=== PATIENT | male | born 1965 | race Caucasian/White ===

== ENCOUNTER 2024-08-13 13:49 | Inpatient (IN) | payer OTHER ==
[2024-08-13 14:31] VITALS: BMI 37.7
[2024-08-13] MEDS ORDERED: BISMUTH SUBSALICYLATE 262 MG/15 ML BTL PO PRN (14:59)
[2024-08-13] MEDS ORDERED: IBUPROFEN 400 MG TABLET (FP) PO PRN (14:59)
[2024-08-13] MEDS ORDERED: DICYCLOMINE HCL 10 MG CAPSULE PO PRN (14:59)
[2024-08-13] MEDS ORDERED: MAG HYDROX/AL HYDROX/SIMETH 30 ML UNIT-DOSE CUP PO PRN (14:59)
[2024-08-13] MEDS ORDERED: LOPERAMIDE HCL 2 MG CAPSULE PO PRN (14:59)
[2024-08-13] MEDS ORDERED: BENZOCAINE/MENTHOL (CHLORASEPTIC ) LOZENGE MM PRN (14:59)
[2024-08-13] MEDS ORDERED: MAGNESIUM HYDROX 2400MG/30ML ORAL SUSPENSION 30 ML CUP PO PRN (14:59)
[2024-08-13] MEDS ORDERED: guaiFENesin 600 MG TABLET.ER (FP) PO PRN (14:59)
[2024-08-13] MEDS ORDERED: NICOTINE POLACRILEX 2 MG LOZENGE BC PRN (14:59)
[2024-08-13] MEDS ORDERED: BENZONATATE 200 MG CAPSULE PO PRN (14:59)
[2024-08-13] MEDS ORDERED: POLYETHYLENE GLYCOL (HEALTHYLAX) 3350 17 GM PACKET PO PRN (14:59)
[2024-08-13] MEDS ORDERED: NALOXONE (NARCAN) HCL 4 MG/0.1 ML SPRAY NS PRN (14:59)
[2024-08-13] MEDS ORDERED: ONDANSETRON *ODT* 4 MG TABLET ONE (15:36)
[2024-08-13] MEDS: ONDANSETRON *ODT* 4 MG TABLET SL PRN (15:43)
[2024-08-13] MEDS ORDERED: chlordiazePOXIDE HCL 25 MG CAPSULE ONE (15:45)
[2024-08-13] MEDS ORDERED: levETIRAcetam 500 MG TABLET (FP) PO ONE (15:46)
[2024-08-13] MEDS: chlordiazePOXIDE HCL 25 MG CAPSULE PO ONE (15:46)
[2024-08-13] MEDS: levETIRAcetam 500 MG TABLET (FP) PO ONE (15:47)
[2024-08-13] MEDS: chlordiazePOXIDE HCL 25 MG CAPSULE PO SCH (17:07)
[2024-08-13] MEDS: ACETAMINOPHEN 325 MG TABLET (FP) PO PRN (17:08)
[2024-08-13] MEDS: METHOCARBAMOL 500 MG TABLET PO PRN (22:04)
[2024-08-13] MEDS: cloNIDine HCL 0.1 MG TABLET PO ONE (22:04)
[2024-08-13] MEDS: MELATONIN 5 MG TABLETS PO SCH (22:04)
[2024-08-13] MEDS: levETIRAcetam 500 MG TABLET (FP) PO SCH (22:05)
[2024-08-13] MEDS: THIAMINE 100 MG TABLET PO SCH (22:05)
[2024-08-14] MEDS: LOSARTAN POTASSIUM 50 MG TABLET PO SCH (09:26)
[2024-08-14] MEDS: amLODIPine BESYLATE 10 MG TABLET (FP) PO SCH (09:26)
[2024-08-14] MEDS: PRENATAL VITAMINS W/ FOLIC ACID TABLET (FP) PO SCH (09:26)
[2024-08-14] MEDS: BUPRENORPHINE/NALOXONE 12 MG-3 MG SL FILM PACKET SL SCH (09:27)
[2024-08-14] MEDS: IBUPROFEN 600 MG TABLET (FP) PO PRN (09:28)
[2024-08-14 11:16] LABS: HEMATOCRIT 46.3 % (40.1-51.0); HEMOGLOBIN 15.4 g/dL (13.7-17.5); MCHC 33.3 g/dl (32.3-36.5); MEAN CELL VOLUME 90.3 fl (79.0-92.2); MEAN PLT VOLUME 10.2 fl (9.4-12.4); PLATELET COUNT 230 x10^3/uL (163-337); RDW 13.9 % (12.2-16.1)
[2024-08-14 11:25] LABS: POTASSIUM 3.5 mmol/L (3.5-5.1)
[2024-08-14 11:40] LABS: BLOOD UREA NITROGEN 9.9 mg/dL (7-18)
[2024-08-14 11:44] LABS: ALBUMIN 3.8 g/dl (3.4-5.0); CREATININE 0.9 mg/dL (0.55-1.3)
[2024-08-14 11:45] LABS: BILIRUBIN,TOTAL 0.2 mg/dL (0.2-1)
[2024-08-14 11:46] LABS: TOT PROT 7.1 g/dl (6.4-8.2)
[2024-08-14] MEDS: chlordiazePOXIDE HCL 25 MG CAPSULE PO PRN (12:16)
[2024-08-14] MEDS: NICOTINE POLACRILEX 2 MG GUM BUC PRN (16:22)
[2024-08-14] MEDS: cloNIDine HCL 0.1 MG TABLET PO ONE (19:10)
[2024-08-14] MEDS: hydrOXYzine PAMOATE 25 MG CAPSULE (FP) PO PRN (21:04)
[2024-08-14] MEDS: PREGABALIN 50 MG CAPSULE PO SCH (22:07)
[2024-08-14] MEDS: SUVOREXANT 10 MG TABLET PO PRN (22:09)
[2024-08-14] MEDS: hydrALAZINE HCL 25 MG TABLET (FP) PO ONE (23:45)
[2024-08-15] MEDS: chlordiazePOXIDE HCL 25 MG CAPSULE PO SCH (05:38)
[2024-08-15] MEDS: ALBUTEROL SO4 HFA INHALER IH PRN (06:03)
[2024-08-15] MEDS: cloNIDine HCL 0.1 MG TABLET PO PRN (09:23)
[2024-08-15] MEDS: predniSONE 20 MG TABLET (UD) PO SCH (13:30)
[2024-08-15] MEDS: NIFEdipine E.R. 30 MG TABLET PO ONE (13:33)
[2024-08-15] MEDS: SUVOREXANT 15 MG TABLET PO PRN (22:36)
[2024-08-16] MEDS ORDERED: chlordiazePOXIDE HCL 10 MG CAPSULE PO PRN
[2024-08-16] MEDS: chlordiazePOXIDE HCL 10 MG CAPSULE PO SCH (05:47)
[2024-08-16 09:18] VITALS: RESP 18
[2024-08-16] MEDS: NIFEdipine E.R 60 MG TABLET PO SCH (10:19)
[2024-08-17] MEDS: chlordiazePOXIDE HCL 10 MG CAPSULE PO SCH (06:00)
[2024-08-17 09:20] VITALS: BP 149/89; PULSE 71; TEMP 96.9
[2024-08-18] MEDS ORDERED: chlordiazePOXIDE HCL 10 MG CAPSULE PO ONE (05:00)
== END 2024-08-17 12:25 | disposition home or self-care (01) | DRG 897 ==
LOC: YASAS 13:49 → Y6N 16:04
PROVIDERS: ADMIT Allergy & Immunology; ATTEND Allergy & Immunology
PROC: HZ2ZZZZ Detoxification Services for Substance Abuse Treatment (ICD-10-PCS; principal; 2024-08-13)
DX: F10.230 Alcohol dependence with withdrawal, uncomplicated (principal); F14.20 Cocaine dependence, uncomplicated; F17.210 Nicotine dependence, cigarettes, uncomplicated; F10.282 Alcohol dependence with alcohol-induced sleep disorder; F10.280 Alcohol dependence with alcohol-induced anxiety disorder; F41.9 Anxiety disorder, unspecified; F41.0 Panic disorder [episodic paroxysmal anxiety]; E78.5 Hyperlipidemia, unspecified; I10 Essential (primary) hypertension; M54.50 Low back pain, unspecified; G89.29 Other chronic pain; Z62.810 Personal history of physical and sexual abuse in childhood
CPT/HCPCS: 36415; 80053; 80305; 80307; 85027; 86780; 93005; 93010; Q0162